=== PATIENT | male | born 1970 | race Caucasian/White ===

== ENCOUNTER 2017-12-12 11:33 | Inpatient (IN) | payer BC ==
[~2017-12-12] VITALS: Ht 177.8 cm; Wt 91.3 kg
[2017-12-12 16:36] LABS: HEMATOCRIT 35.1 % (38.0-50.0); MCH 33.9 PG (29.0-34.0); MCV 91.4 FL (86-99); PLATELET COUNT 137 K/uL (156-360); RBC DIS.WIDTH-CV 11.6 % (11.8-14.6); RBC DIS.WIDTH-SD 38.5 % (39-53); RED BLOOD COUNT 3.84 M/uL (4.00-5.50); WHITE BLOOD COUNT 12.6 K/uL (4.1-10.2)
[2017-12-12 16:46] LABS: CHLORIDE 90 mEq/L (99-109)
[2017-12-12 16:47] LABS: SODIUM 135 mEq/L (136-147)
[2017-12-12 16:48] LABS: GLUCOSE 219 mg/dL (70-99)
[2017-12-12 16:52] LABS: CREATININE 0.8 mg/dL (0.6-1.3); GFR ESTIMATE (CALCULATED) > 59 mL/min/ (58.99-99999)
[2017-12-12 16:53] LABS: UREA NITROGEN (BUN) 16 mg/dL (9-23)
[2017-12-12 21:06] LABS: MAGNESIUM 1.4 mg/dL (1.3-2.7)
[2017-12-12 21:59] VITALS: BP 142/68
[2017-12-12 23:12] VITALS: BP 137/64
[2017-12-13 03:31] VITALS: BP 135/66
[2017-12-13 06:46] LABS: BASOPHIL (%) 0.5 % (0-1); BASOPHIL COUNT 0.1 K/uL (0-0.1); EOSINOPHIL COUNT 0.1 K/uL (0-0.3); HEMATOCRIT 31.3 % (38.0-50.0); HEMOGLOBIN 11.2 G/DL (12.5-16.6); IMMATURE GRANULOCYTE (%) 0.4 % (0.0-0.7); LYMPHOCYTE (%) 14.9 % (15-42); LYMPHOCYTE COUNT 1.5 K/uL (1.0-2.8); MCH 32.7 PG (29.0-34.0); MCHC 35.8 G/DL (30.0-36.0); MCV 91.5 FL (86-99); MONOCYTE (%) 8.5 % (3-12); MONOCYTE COUNT 0.8 K/uL (0-0.8); NEUTROPHIL (%) 74.7 % (45-76); NEUTROPHIL COUNT 7.4 K/uL (1.8-6.4); PLATELET COUNT 126 K/uL (156-360); RBC DIS.WIDTH-CV 11.6 % (11.8-14.6); RBC DIS.WIDTH-SD 39.1 % (39-53); RED BLOOD COUNT 3.42 M/uL (4.00-5.50); WHITE BLOOD COUNT 9.9 K/uL (4.1-10.2)
[2017-12-13 07:22] LABS: ALBUMIN 2.7 G/DL (3.2-4.8); ALKALINE PHOSPHATASE 83 IU/L (3-129); ALT (GPT) 18 IU/L (3-49); AST (GOT) 25 IU/L (2-34); CHLORIDE 93 MEQ/L (99-109); CREATININE 0.8 MG/DL (0.6-1.3); DIRECT BILIRUBIN 0.5 mg/dL (0.0-0.3); GFR ESTIMATE (CALCULATED) > 59 mL/min/ (58.99-99999); GLUCOSE 247 mg/dL (70-99); POTASSIUM 3.2 MEQ/L (3.7-5.4); SODIUM 136 MEQ/L (136-147); TOTAL BILIRUBIN 1.2 MG/DL (0.0-1.0); TOTAL PROTEIN 5.8 G/DL (6.4-8.3); UREA NITROGEN (BUN) 14 mg/dL (9-23)
[2017-12-13 07:28] VITALS: BP 169/79
[2017-12-13 09:48] LABS: HEMOGLOBIN A1c (GLYCOHEMOGLOB) 10.1 % (Below 5.7)
[2017-12-13 11:23] VITALS: BP 159/66
[2017-12-13 15:35] VITALS: BP 138/78
[2017-12-13 20:29] VITALS: BP 129/69
[2017-12-14 00:50] VITALS: BP 146/82
[2017-12-14 06:47] VITALS: BP 136/66
[2017-12-14 07:06] LABS: BASOPHIL (%) 0.5 % (0-1); BASOPHIL COUNT 0.1 K/uL (0-0.1); EOSINOPHIL (%) 2.4 % (0-5); EOSINOPHIL COUNT 0.2 K/uL (0-0.3); HEMATOCRIT 32.1 % (38.0-50.0); HEMOGLOBIN 11.5 G/DL (12.5-16.6); IMMATURE GRANULOCYTE (%) 0.4 % (0.0-0.7); LYMPHOCYTE (%) 19.2 % (15-42); LYMPHOCYTE COUNT 1.8 K/uL (1.0-2.8); MCH 32.9 PG (29.0-34.0); MCHC 35.8 G/DL (30.0-36.0); MCV 91.7 FL (86-99); MONOCYTE (%) 7.7 % (3-12); MONOCYTE COUNT 0.7 K/uL (0-0.8); NEUTROPHIL (%) 69.8 % (45-76); NEUTROPHIL COUNT 6.5 K/uL (1.8-6.4); PLATELET COUNT 128 K/uL (156-360); RBC DIS.WIDTH-CV 11.6 % (11.8-14.6); RBC DIS.WIDTH-SD 39.1 % (39-53); WHITE BLOOD COUNT 9.2 K/uL (4.1-10.2)
[2017-12-14 07:36] LABS: CHLORIDE 96 MEQ/L (99-109); CREATININE 0.6 MG/DL (0.6-1.3); GFR ESTIMATE (CALCULATED) > 59 mL/min/ (58.99-99999); GLUCOSE 197 mg/dL (70-99); POTASSIUM 3.7 MEQ/L (3.7-5.4); SODIUM 135 MEQ/L (136-147); UREA NITROGEN (BUN) 7 mg/dL (9-23); VANCOMYCIN, TROUGH 10.7 MCG/ML (10-20)
[2017-12-14 09:57] LABS: ALBUMIN 2.7 G/DL (3.2-4.8); ALKALINE PHOSPHATASE 85 IU/L (3-129); ALT (GPT) 19 IU/L (3-49); AST (GOT) 27 IU/L (2-34); DIRECT BILIRUBIN 0.4 mg/dL (0.0-0.3); TOTAL BILIRUBIN 1.2 MG/DL (0.0-1.0); TOTAL PROTEIN 6.3 G/DL (6.4-8.3)
[2017-12-14 15:25] VITALS: BP 154/93
[2017-12-14 19:45] VITALS: BP 155/91
[2017-12-15 00:10] VITALS: BP 145/78
[2017-12-15 03:20] VITALS: BP 105/66
[2017-12-15 07:01] LABS: BASOPHIL (%) 0.8 % (0-1); BASOPHIL COUNT 0.1 K/uL (0-0.1); EOSINOPHIL (%) 3.5 % (0-5); EOSINOPHIL COUNT 0.3 K/uL (0-0.3); HEMATOCRIT 34.1 % (38.0-50.0); HEMOGLOBIN 12.4 G/DL (12.5-16.6); IMMATURE GRANULOCYTE (%) 0.5 % (0.0-0.7); LYMPHOCYTE (%) 20.9 % (15-42); LYMPHOCYTE COUNT 1.6 K/uL (1.0-2.8); MCH 33.4 PG (29.0-34.0); MCHC 36.4 G/DL (30.0-36.0); MCV 91.9 FL (86-99); MONOCYTE (%) 7.7 % (3-12); MONOCYTE COUNT 0.6 K/uL (0-0.8); NEUTROPHIL (%) 66.6 % (45-76); NEUTROPHIL COUNT 5.1 K/uL (1.8-6.4); PLATELET COUNT 139 K/uL (156-360); RBC DIS.WIDTH-CV 11.5 % (11.8-14.6); RBC DIS.WIDTH-SD 38.9 % (39-53); RED BLOOD COUNT 3.71 M/uL (4.00-5.50); WHITE BLOOD COUNT 7.7 K/uL (4.1-10.2)
[2017-12-15 07:21] LABS: ALBUMIN 2.8 G/DL (3.2-4.8); ALKALINE PHOSPHATASE 88 IU/L (3-129); ALT (GPT) 21 IU/L (3-49); AST (GOT) 29 IU/L (2-34); CHLORIDE 96 MEQ/L (99-109); CREATININE 0.6 MG/DL (0.6-1.3); DIRECT BILIRUBIN 0.4 mg/dL (0.0-0.3); GFR ESTIMATE (CALCULATED) > 59 mL/min/ (58.99-99999); GLUCOSE 184 mg/dL (70-99); POTASSIUM 3.6 MEQ/L (3.7-5.4); SODIUM 132 MEQ/L (136-147); TOTAL BILIRUBIN 1.1 MG/DL (0.0-1.0); TOTAL PROTEIN 6.7 G/DL (6.4-8.3); UREA NITROGEN (BUN) 9 mg/dL (9-23)
[2017-12-15 08:20] VITALS: BP 129/86
[2017-12-15 16:36] VITALS: BP 154/98
[2017-12-15 19:25] VITALS: BP 140/81
[2017-12-15 23:28] VITALS: BP 116/67
[2017-12-16 03:32] VITALS: BP 135/79
[2017-12-16 06:51] LABS: BASOPHIL (%) 0.7 % (0-1); BASOPHIL COUNT 0.1 K/uL (0-0.1); EOSINOPHIL (%) 3.2 % (0-5); EOSINOPHIL COUNT 0.3 K/uL (0-0.3); HEMATOCRIT 34.8 % (38.0-50.0); HEMOGLOBIN 12.4 G/DL (12.5-16.6); IMMATURE GRANULOCYTE (%) 0.4 % (0.0-0.7); LYMPHOCYTE (%) 18.7 % (15-42); LYMPHOCYTE COUNT 1.6 K/uL (1.0-2.8); MCH 33.1 PG (29.0-34.0); MCHC 35.6 G/DL (30.0-36.0); MCV 92.8 FL (86-99); MONOCYTE (%) 8.2 % (3-12); MONOCYTE COUNT 0.7 K/uL (0-0.8); NEUTROPHIL (%) 68.8 % (45-76); NEUTROPHIL COUNT 5.8 K/uL (1.8-6.4); PLATELET COUNT 149 K/uL (156-360); RBC DIS.WIDTH-CV 11.7 % (11.8-14.6); RBC DIS.WIDTH-SD 39.4 % (39-53); RED BLOOD COUNT 3.75 M/uL (4.00-5.50); WHITE BLOOD COUNT 8.4 K/uL (4.1-10.2)
[2017-12-16 07:15] VITALS: BP 149/86
[2017-12-16 07:43] LABS: CHLORIDE 98 MEQ/L (99-109); GLUCOSE 174 mg/dL (70-99); SODIUM 130 MEQ/L (136-147); UREA NITROGEN (BUN) 18 mg/dL (9-23)
[2017-12-16 07:48] LABS: CREATININE 1.6 MG/DL (0.6-1.3); GFR ESTIMATE (CALCULATED) 49 mL/min/ (58.99-99999); POTASSIUM 4.4 MEQ/L (3.7-5.4); VANCOMYCIN, TROUGH 23.4 MCG/ML (10-20)
[2017-12-16 10:18] LABS: C DIFF TOXIN NEGATIVE (NEGATIVE)
[2017-12-16 15:51] VITALS: BP 156/60
[2017-12-16 18:47] LABS: APPEARANCE CLEAR ((CLEAR)); BILIRUBIN NEGATIVE; BLOOD NEGATIVE; COLOR STRAW ((YELLOW)); GLUCOSE (STRIP) >=500; KETONES NEGATIVE; LEUKOCYTES NEGATIVE; NITRITE NEGATIVE; PROTEIN (STRIP) NEGATIVE; SPECIFIC GRAVITY 1.003 (1.000-1.030); UCUL ADDED? NO; UROBILINOGEN 0.2 MG/DL (0.2-1.0)
[2017-12-17 00:04] VITALS: BP 131/81
[2017-12-17 07:06] LABS: BASOPHIL (%) 0.6 % (0-1); BASOPHIL COUNT 0.1 K/uL (0-0.1); EOSINOPHIL (%) 4.2 % (0-5); EOSINOPHIL COUNT 0.3 K/uL (0-0.3); HEMATOCRIT 32.4 % (38.0-50.0); HEMOGLOBIN 11.3 G/DL (12.5-16.6); IMMATURE GRANULOCYTE (%) 0.4 % (0.0-0.7); LYMPHOCYTE COUNT 1.6 K/uL (1.0-2.8); MCH 32.3 PG (29.0-34.0); MCHC 34.9 G/DL (30.0-36.0); MCV 92.6 FL (86-99); MONOCYTE (%) 9.9 % (3-12); MONOCYTE COUNT 0.8 K/uL (0-0.8); NEUTROPHIL (%) 64.9 % (45-76); NEUTROPHIL COUNT 5.2 K/uL (1.8-6.4); PLATELET COUNT 159 K/uL (156-360); RBC DIS.WIDTH-CV 11.7 % (11.8-14.6); RBC DIS.WIDTH-SD 39.6 % (39-53); WHITE BLOOD COUNT 8.1 K/uL (4.1-10.2)
[2017-12-17 07:33] LABS: CHLORIDE 100 MEQ/L (99-109); GFR ESTIMATE (CALCULATED) 34 mL/min/ (58.99-99999); GLUCOSE 195 mg/dL (70-99); POTASSIUM 4.3 MEQ/L (3.7-5.4); SODIUM 133 MEQ/L (136-147); UREA NITROGEN (BUN) 24 mg/dL (9-23)
[2017-12-17 07:41] LABS: CREATININE 2.2 MG/DL (0.6-1.3)
[2017-12-17 08:34] VITALS: BP 158/81
[2017-12-17 17:14] VITALS: BP 155/80
[2017-12-18 00:57] VITALS: BP 142/78
[2017-12-18 08:58] VITALS: BP 147/91
[2017-12-18 09:33] LABS: BASOPHIL (%) 0.7 % (0-1); BASOPHIL COUNT 0.1 K/uL (0-0.1); EOSINOPHIL (%) 3.7 % (0-5); EOSINOPHIL COUNT 0.3 K/uL (0-0.3); HEMATOCRIT 31.8 % (38.0-50.0); HEMOGLOBIN 11.4 G/DL (12.5-16.6); IMMATURE GRANULOCYTE (%) 0.3 % (0.0-0.7); LYMPHOCYTE COUNT 1.4 K/uL (1.0-2.8); MCH 33.2 PG (29.0-34.0); MCHC 35.8 G/DL (30.0-36.0); MCV 92.7 FL (86-99); MONOCYTE (%) 8.7 % (3-12); MONOCYTE COUNT 0.6 K/uL (0-0.8); NEUTROPHIL (%) 66.6 % (45-76); NEUTROPHIL COUNT 4.7 K/uL (1.8-6.4); PLATELET COUNT 154 K/uL (156-360); RBC DIS.WIDTH-CV 11.9 % (11.8-14.6); RBC DIS.WIDTH-SD 40.2 % (39-53); RED BLOOD COUNT 3.43 M/uL (4.00-5.50)
[2017-12-18 10:20] LABS: ALBUMIN 2.8 G/DL (3.2-4.8); ALKALINE PHOSPHATASE 81 IU/L (3-129); ALT (GPT) 25 IU/L (3-49); AST (GOT) 36 IU/L (2-34); CHLORIDE 97 MEQ/L (99-109); CREATININE 2.2 MG/DL (0.6-1.3); GFR ESTIMATE (CALCULATED) 34 mL/min/ (58.99-99999); GLUCOSE 242 mg/dL (70-99); POTASSIUM 4.1 MEQ/L (3.7-5.4); SODIUM 131 MEQ/L (136-147); TOTAL PROTEIN 6.8 G/DL (6.4-8.3); UREA NITROGEN (BUN) 29 mg/dL (9-23)
[2017-12-18 17:08] VITALS: BP 130/76
[2017-12-18 23:05] VITALS: BP 140/69
[2017-12-18 23:30] VITALS: BP 130/66
[2017-12-19 06:45] LABS: BASOPHIL (%) 0.6 % (0-1); EOSINOPHIL (%) 3.9 % (0-5); EOSINOPHIL COUNT 0.3 K/uL (0-0.3); HEMATOCRIT 31.7 % (38.0-50.0); HEMOGLOBIN 11.1 G/DL (12.5-16.6); IMMATURE GRANULOCYTE (%) 0.3 % (0.0-0.7); LYMPHOCYTE (%) 20.5 % (15-42); LYMPHOCYTE COUNT 1.5 K/uL (1.0-2.8); MCH 32.3 PG (29.0-34.0); MCV 92.2 FL (86-99); MONOCYTE (%) 10.2 % (3-12); MONOCYTE COUNT 0.7 K/uL (0-0.8); NEUTROPHIL (%) 64.5 % (45-76); NEUTROPHIL COUNT 4.6 K/uL (1.8-6.4); PLATELET COUNT 175 K/uL (156-360); RBC DIS.WIDTH-CV 11.7 % (11.8-14.6); RBC DIS.WIDTH-SD 39.6 % (39-53); RED BLOOD COUNT 3.44 M/uL (4.00-5.50); WHITE BLOOD COUNT 7.2 K/uL (4.1-10.2)
[2017-12-19 07:28] LABS: ALBUMIN 2.8 G/DL (3.2-4.8); ALKALINE PHOSPHATASE 78 IU/L (3-129); ALT (GPT) 29 IU/L (3-49); AST (GOT) 43 IU/L (2-34); CHLORIDE 102 MEQ/L (99-109); GFR ESTIMATE (CALCULATED) 38 mL/min/ (58.99-99999); GLUCOSE 147 mg/dL (70-99); POTASSIUM 4.1 MEQ/L (3.7-5.4); SODIUM 133 MEQ/L (136-147); TOTAL BILIRUBIN 0.8 MG/DL (0.0-1.0); TOTAL PROTEIN 6.8 G/DL (6.4-8.3); UREA NITROGEN (BUN) 28 mg/dL (9-23)
[2017-12-19 07:36] VITALS: BP 141/67
[2017-12-19 15:03] VITALS: BP 142/78
[2017-12-19] MEDS ORDERED: CHOLESTYRAMINE P4 GM PO (16:39)
[2017-12-19] MEDS ORDERED: AMOX TR-K CLV1 EAC4 PO (16:39)
[2017-12-19] MEDS ORDERED: LEVEMIR100 UNIT/2 SC (16:39)
[2017-12-19] MEDS ORDERED: AMLODIPINE BESY10 MG PO (16:39)
[2017-12-19] MEDS ORDERED: HYDROCODON-ACE1 EAC7 PO (16:39)
[2017-12-19] MEDS ORDERED: NICOTINE PATCH1 EAC2 TD (16:39)
[2017-12-19] MEDS ORDERED: LOPERAMIDE2 MG PO (16:39)
[2017-12-19 19:00] VITALS: BP 132/78
== END 2017-12-19 20:04 | disposition home or self-care (01) | DRG 255 ==
LOC: EME 11:33 → EDOF 18:49 → 2EAST 18:49 → ENRESERV 18:50 → 2EAST 21:57
PROVIDERS: Hospitalist; Internal Medicine; Physician Assistant; Physician Assistant Surgical
PROC: 0Y6X0Z0 Detachment at Right 5th Toe, Complete, Open Approach (ICD-10-PCS; principal; 2017-12-12)
PROC: 0JBQ0ZZ Excision of Right Foot Subcutaneous Tissue and Fascia, Open Approach (ICD-10-PCS; 2017-12-17)
DX: E11.52 Type 2 diabetes mellitus with diabetic peripheral angiopathy with gangrene (principal); E11.628 Type 2 diabetes mellitus with other skin complications; L03.115 Cellulitis of right lower limb; E11.65 Type 2 diabetes mellitus with hyperglycemia; N17.0 Acute kidney failure with tubular necrosis; E87.6 Hypokalemia; K70.30 Alcoholic cirrhosis of liver without ascites; D69.59 Other secondary thrombocytopenia; F10.20 Alcohol dependence, uncomplicated; I10 Essential (primary) hypertension; L71.9 Rosacea, unspecified; L85.0 Acquired ichthyosis; F17.210 Nicotine dependence, cigarettes, uncomplicated; Z83.3 Family history of diabetes mellitus
CPT/HCPCS: 73630; 76770; 80048; 80053; 80076; 80202; 81003; 82565; 82948; 83036; 83605; 83735; 85025; 85027; 87040; 87070; 87075; 87076; 87077; 87186; 87205; 87493; 88305; 88311; 93926; 94799; 99281; 99285; A6260; J1650; J1815; J2250; J2405; J2543; J3010; J3370; J7030; J7040; J7050; S0020

== ENCOUNTER 2018-03-16 12:40 | Day surgery (SDC) | payer BC ==
[~2018-03-16] VITALS: Ht 177.8 cm; Wt 86.2 kg
[~2018-03-16 12:40] MED LIST: AMLODIPINE BESY10 MG PO; AMOX TR-K CLV1 EAC4 PO; CHOLESTYRAMINE P4 GM PO; HYDROCODON-ACE1 EAC7 PO; LANTUS 3 M100 UNITS1 SC; LEVEMIR100 UNIT/2 SC; LOPERAMIDE2 MG PO; LYRICA50 MG PO; NICOTINE PATCH1 EAC2 TD
[2018-03-16 13:42] VITALS: BP 138/65
[2018-03-16 19:20] VITALS: BP 153/82
[2018-03-16 20:19] VITALS: BP 133/79
== END 2018-03-16 20:30 | disposition home or self-care (01) ==
LOC: SDC 12:40
PROVIDERS: Podiatrist Foot & Ankle Surgery
PROC: 0Y6M0Z7 Detachment at Right Foot, Complete 4th Ray, Open Approach (ICD-10-PCS; principal; 2018-03-16)
DX: E11.69 Type 2 diabetes mellitus with other specified complication (principal); M86.671 Other chronic osteomyelitis, right ankle and foot; Z79.4 Long term (current) use of insulin; F17.200 Nicotine dependence, unspecified, uncomplicated
CPT/HCPCS: 82948; 87070; 87075; 87076; 87185; 87205; 88305; 88311; J0690; J2250; J2405; J3010; S0020